=== PATIENT | female | born 1990 | race African-American/Black ===

== ENCOUNTER → 2019-04-28 14:00 | Outpatient (CLI) | payer MEDICAID | END | disposition home or self-care (01) | LOC: D.CT 14:00 | PROVIDERS: ATTEND Family Medicine | DX: R10.9 Unspecified abdominal pain (principal) ==

== ENCOUNTER 2019-06-09 10:53 | Emergency (ER) | payer MEDICAID ==
[~2019-06-09] VITALS: Ht 162.6 cm; Wt 77.3 kg
[2019-06-09 11:13] VITALS: Ht 162.6 cm; Wt 77.3 kg
[2019-06-09] MEDS ORDERED: BIRTH CONTROL PILL (11:14)
[2019-06-09 11:30] LABS: BASOPHILS 0.3 % (0-2); EOSINOPHILS 0.8 % (0-7); HEMATOCRIT 36.3 % (36.0-48.0); HEMOGLOBIN 12.1 g/dL (12-16); IMMATURE GRANULOCYTES 0.2 % (0-5); LYMPHOCYTES 24.6 % (15-50); MCH 30.1 pg (26.0-34.0); MCHC 33.3 g/dL (31.0-37.0); MCV 90.3 fL (80.0-100.0); MEAN PLATELET VOLUME 9.4 fL (7.4-10.4); MONOCYTES 4.6 % (2-11); NEUTROPHILS 69.5 % (40-80); PLATELET COUNT 276 10x3/uL (130-400); RBC 4.02 10x6/uL (4.00-5.40); RDW 12.4 % (11.5-14.5); WBC 11.2 10x3/uL (4.8-10.8)
[2019-06-09 11:35] LABS: CALC OSMOLALITY 271 mosm/kg (275-300); CALCIUM 9.3 mg/dL (8.5-10.1); CARBON DIOXIDE 23.9 mmol/L (21.0-32.0); CHLORIDE - SERUM 102 mmol/L (98-107); CREATININE - SERUM 0.7 mg/dL (0.6-1.3); GLUCOSE 94 mg/dL (74-106); POTASSIUM - SERUM 4.4 mmol/L (3.5-5.1); SODIUM 136 mmol/L (136-145); UREA NITROGEN 12 mg/dL (7-18); eGFR NON AFRICAN AMERICAN > 90 mL/min (90-120)
[2019-06-09 12:01] LABS: ALBUMIN 3.8 g/dL (3.4-5.0); ALKALINE PHOSPHATASE 43 U/L (46-116); ALT (SGPT) 25 U/L (10-68); BILIRUBIN - TOTAL 0.61 mg/dL (0.2-1.3); HCG - QUANTITATIVE (MATERNAL) 16034 mIU/mL; PROTEIN - SERUM 7.4 g/dL (6.4-8.2)
[2019-06-09 12:48] LABS: APPEARANCE CLEAR (CLEAR); BILIRUBIN NEGATIVE (NEGATIVE); COLOR YELLOW (YELLOW); GLUCOSE NEGATIVE (NEGATIVE); KETONE NEGATIVE (NEGATIVE); NITRITE NEGATIVE (NEGATIVE); PROTEIN NEGATIVE (NEGATIVE); RED CELLS - URINE 0-5 /hpf (0-5); UROBILINOGEN NORMAL (NORMAL); WHITE CELLS - URINE RARE /hpf (NEGATIVE)
[2019-06-09 12:49] LABS: BACTERIA FEW /hpf (NEGATIVE); EPITHELIAL CELLS 0-5 /hpf (0-5); MUCUS <1+ /lpf (NONE SEEN)
[2019-06-09 14:22] VITALS: BP 143/93
== END 2019-06-09 14:17 | disposition home or self-care (01) ==
LOC: D.ER 10:53
PROVIDERS: Family Medicine
DX: O20.9 Hemorrhage in early pregnancy, unspecified (principal); Z3A.00 Weeks of gestation of pregnancy not specified

== ENCOUNTER 2019-12-14 10:35 | Outpatient (CLI) | payer MEDICAID ==
[2019-06-09 11:13] VITALS: BMI 29.2
[~2019-12-14 10:35] MED LIST: BIRTH CONTROL PILL
== END 2019-12-14 12:10 | disposition home or self-care (01) ==
LOC: D.LDO 10:35
PROVIDERS: ATTEND Student in an Organized Health Care Education/Training Program
DX: O24.419 Gestational diabetes mellitus in pregnancy, unspecified control (principal); Z3A.00 Weeks of gestation of pregnancy not specified

== ENCOUNTER 2019-12-20 19:21 | Outpatient (CLI) | payer MEDICAID ==
[2019-06-09 11:13] VITALS: BMI 29.2
[2019-12-20 20:10] LABS: BILIRUBIN NEGATIVE (NEGATIVE); GLUCOSE NEGATIVE (NEGATIVE); KETONE NEGATIVE (NEGATIVE); NITRITE NEGATIVE (NEGATIVE); SPECIFIC GRAVITY 1.015 (1.005-1.020); UROBILINOGEN NORMAL (NORMAL)
[2019-12-20 20:11] LABS: BACTERIA FEW /hpf (NEGATIVE); EPITHELIAL CELLS OCC /hpf (0-5); RED CELLS - URINE 0-5 /hpf (0-5); WHITE CELLS - URINE OCC /hpf (NEGATIVE)
== END 2019-12-20 21:43 | disposition home or self-care (01) ==
LOC: D.LDO 19:21
PROVIDERS: ATTEND Obstetrics & Gynecology
DX: O36.8130 Decreased fetal movements, third trimester, not applicable or unspecified (principal); Z3A.33 33 weeks gestation of pregnancy

== ENCOUNTER 2019-12-23 11:27 | Outpatient (CLI) | payer MEDICAID ==
[2019-06-09 11:13] VITALS: BMI 29.2
[2019-12-23 12:52] LABS: BACTERIA MODERATE /hpf (NEGATIVE); BILIRUBIN NEGATIVE (NEGATIVE); EPITHELIAL CELLS OCC /hpf (0-5); GLUCOSE NEGATIVE (NEGATIVE); KETONE MODERATE mg/dL (NEGATIVE); NITRITE NEGATIVE (NEGATIVE); RED CELLS - URINE 0-5 /hpf (0-5); SPECIFIC GRAVITY 1.005 (1.005-1.020); UROBILINOGEN NORMAL (NORMAL); WHITE CELLS - URINE 0-5 /hpf (NEGATIVE)
== END 2019-12-24 10:09 | disposition home or self-care (01) ==
LOC: D.LDO 11:27 → D.LD 20:49 → D.LDO 12-24 10:09
PROVIDERS: ATTEND Student in an Organized Health Care Education/Training Program
DX: O24.419 Gestational diabetes mellitus in pregnancy, unspecified control (principal); Z3A.33 33 weeks gestation of pregnancy

== ENCOUNTER 2019-12-28 09:45 | Outpatient (CLI) | payer MEDICAID ==
[2019-06-09 11:13] VITALS: BMI 29.2
== END 2019-12-28 10:50 | disposition home or self-care (01) ==
LOC: D.LDO 09:45
PROVIDERS: ATTEND Student in an Organized Health Care Education/Training Program
DX: O24.419 Gestational diabetes mellitus in pregnancy, unspecified control (principal); Z3A.34 34 weeks gestation of pregnancy

== ENCOUNTER 2019-12-31 09:28 | Outpatient (CLI) | payer MEDICAID ==
[2019-06-09 11:13] VITALS: BMI 29.2
== END 2019-12-31 09:48 | disposition home or self-care (01) ==
LOC: D.LDO 09:28
PROVIDERS: ATTEND Student in an Organized Health Care Education/Training Program
DX: O24.419 Gestational diabetes mellitus in pregnancy, unspecified control (principal); Z3A.34 34 weeks gestation of pregnancy

== ENCOUNTER 2020-01-04 10:06 | Outpatient (CLI) | payer MEDICAID ==
[2019-06-09 11:13] VITALS: BMI 29.2
== END 2020-01-04 11:15 | disposition home or self-care (01) ==
LOC: D.LDO 10:06
PROVIDERS: ATTEND Student in an Organized Health Care Education/Training Program
DX: O24.419 Gestational diabetes mellitus in pregnancy, unspecified control (principal); Z3A.35 35 weeks gestation of pregnancy

== ENCOUNTER 2020-01-07 10:07 | Outpatient (CLI) | payer MEDICAID ==
[2019-06-09 11:13] VITALS: BMI 29.2
== END 2020-01-07 10:18 | disposition home or self-care (01) ==
LOC: D.LDO 10:07
PROVIDERS: ATTEND Student in an Organized Health Care Education/Training Program
DX: O24.419 Gestational diabetes mellitus in pregnancy, unspecified control (principal); Z3A.35 35 weeks gestation of pregnancy

== ENCOUNTER 2020-01-10 10:39 | Outpatient (CLI) | payer MEDICAID ==
[2019-06-09 11:13] VITALS: BMI 29.2
== END 2020-01-10 11:02 | disposition home or self-care (01) ==
LOC: D.LDO 10:39
PROVIDERS: ATTEND Student in an Organized Health Care Education/Training Program
DX: O24.419 Gestational diabetes mellitus in pregnancy, unspecified control (principal); Z3A.36 36 weeks gestation of pregnancy

== ENCOUNTER 2020-01-17 11:03 | Outpatient (CLI) | payer MEDICAID ==
[2019-06-09 11:13] VITALS: BMI 29.2
== END 2020-01-17 11:39 | disposition home or self-care (01) ==
LOC: D.LDO 11:03
PROVIDERS: ATTEND Student in an Organized Health Care Education/Training Program
DX: O24.419 Gestational diabetes mellitus in pregnancy, unspecified control (principal); Z3A.37 37 weeks gestation of pregnancy

== ENCOUNTER 2020-01-20 10:29 | Outpatient (CLI) | payer MEDICAID ==
[2019-06-09 11:13] VITALS: BMI 29.2
== END 2020-01-20 10:40 | disposition home or self-care (01) ==
LOC: D.LDO 10:29
PROVIDERS: ATTEND Student in an Organized Health Care Education/Training Program
DX: O24.419 Gestational diabetes mellitus in pregnancy, unspecified control (principal); Z3A.37 37 weeks gestation of pregnancy

== ENCOUNTER 2020-01-24 10:35 | Outpatient (CLI) | payer MEDICAID ==
[2019-06-09 11:13] VITALS: BMI 29.2
== END 2020-01-24 11:00 | disposition home or self-care (01) ==
LOC: D.LDO 10:35
PROVIDERS: ATTEND Student in an Organized Health Care Education/Training Program
DX: O24.419 Gestational diabetes mellitus in pregnancy, unspecified control (principal); Z3A.38 38 weeks gestation of pregnancy

== ENCOUNTER 2020-01-28 10:28 | Outpatient (CLI) | payer MEDICAID ==
[2019-06-09 11:13] VITALS: BMI 29.2
[2020-01-30 05:50] VITALS: BMI 34.9
== END 2020-01-28 10:50 | disposition home or self-care (01) ==
LOC: D.LDO 10:28
PROVIDERS: ATTEND Student in an Organized Health Care Education/Training Program
DX: O24.419 Gestational diabetes mellitus in pregnancy, unspecified control (principal); Z3A.38 38 weeks gestation of pregnancy

== ENCOUNTER 2020-01-30 05:26 | Inpatient (IN) | payer MEDICAID ==
[~2020-01-30] VITALS: Ht 162.6 cm; Wt 92.1 kg
[2020-01-30 05:50] VITALS: BP 132/84; Ht 162.6 cm; Wt 92.1 kg
[2020-01-30 07:25] LABS: HEMATOCRIT 28.3 % (36.0-48.0); HEMOGLOBIN 9.1 g/dL (12-16); MCH 28.1 pg (26.0-34.0); MCHC 32.2 g/dL (31.0-37.0); MCV 87.3 fL (80.0-100.0); MEAN PLATELET VOLUME 9.6 fL (7.4-10.4); RBC 3.24 10x6/uL (4.00-5.40); RDW 13.4 % (11.5-14.5); WBC 10.1 10x3/uL (4.8-10.8)
--- NOTE | 2020-01-30 20:52 | NUR ---
DR RICHARD CALLED TO GIVE REPORT THAT WHEN THIS RN CAME ON SHIFT THIS PM, PT HAD NOT RECEIVED ANY PAIN MEDICATION SINCE DELIVERY. PT REPORTED ABD CRAMPING, HIP AND LOWER BACK PAIN. PT APPEARED TO BE IN TRUE DISCOMFORT. MOTRIN 600MG PO GIVEN. WARM BLANKETS PROVIDED FOR ABD AND LOWER BACK. AFTER 1 HR, PT IS STILL C/O PAIN AND MOTILITY IS DECREASED. PT HAD DIFFICULTLY REPOSITIONING AND AMBULATING. MD GIVES ORDER MAY ADMIN PERCOCET 5/325MG 1 ONE Q 4 HRS PRN.
[2020-01-30 21:05] VITALS: BP 144/85
--- NOTE | 2020-01-30 21:05 | NUR ---
THIS RN TO BEDSIDE FOR SHIFT ASSESSMENT AND PAIN MEDICATION ADMIN. PT LYING AWAKE IN BED ON THE PHONE. PT COMPLETES PHONE CALL FOR ASSESSMENT. SEE FLOWSHEET. PT MEDCIATED W/PEROCET W/TEACHING PROVIDED. GRAPE JUICE SERVED. PT DENIES FURTHER NEEDS.
--- NOTE | 2020-01-30 22:30 | NUR ---
ROUNDS MADE. PT LYING AWAKE IN BED. PAIN REASSESSED. PT STILL REPORTS PAIN IN HER LOWER BACK THAT RADIATES UP TO HER SHOULDERS. PT INFORMED ORDER FOR HEATING PAD WILL BE OBTAINE. PT DECLINES OFFERS TO BRING HER ANYTHING TO EAT OR DRINK.
--- NOTE | 2020-01-30 23:00 | NUR ---
Flavio VILLASENOR EIGHT ARM OPERATOR ON UNIT ROUNDING. REPORT GIVEN THAT PT IS C/O PAIN AT EPIDURAL SITE THAT RADIATES UP HER BACK. ORDER REC'D PT MAY HAVE A KPAD. KPAD PROVIDED TO PT. TEACHING PROVIDED. PT DENIES NEEDS. PT INSTRUCTED TO ATTEMPT TO EMPTY HER BLADDER EVERY 2-3 HOURS. PT VERBALIZES UNDERSTANDING AND AGREEABLE. DENIES NEEDS. BED LOW, SIDE RAILS UP X 2. CALL LIGHT AND PHONE AT PT'S SIDE.
--- NOTE | 2020-01-31 | NUR ---
ROUNDS MADE FOR PAIN AND NEED ASSESSMENT. PT REPORTS KPAD IS NOT HELPING WITH BACK PAIN. REQUEST IT BE TURNED OFF. KPAD OFF AT THIS TIME. PT DENIES NEEDS. DECLINES OFFERS TO BRING HER ANYTHING.
--- NOTE | 2020-01-31 00:15 | NUR ---
VITAL SIGNS OBTAINED. PT REPORTS SHE HAS GOTTEN UP TO VOID FOR THE 3RD TIME. DENIES DIFFICULTY. WHILE AT BEDSIDE, PT QUESTIONED AGAIN IF SHE'D LIKE SOMETHING TO EAT. PT ACCEPTS SANDWHICH TRAY AND ICE WATER. BOTH SERVED.
[2020-01-31 00:30] VITALS: BP 117/83
--- NOTE | 2020-01-31 01:15 | NUR ---
PT HAS FINISHED EATING SANDWICH TRAY SERVED. REQUEST PAIN MEDICATION AT THIS TIME. MOTRIN 600MG PO AND PERCOCET 5/325MG 1 TAB GIVEN. ICE PACK OFFERED FOR PT'S CONTINUED C/O BACK PAIN. PT ACCEPTS. ICE PACK APPLIED TO BACK W/PILLOW TO BACK AND ABD FOR SUPPORT. PT REPORTS SHE PLANS TO REST NOW. CURRENTLY RATES PAIN 5/10. BED IN LOW POSITION. SIDE RAILS UP X 2. CALL LIGHT AND PHONES AT PT'S SIDE. LIGHTS DOWN.
--- NOTE | 2020-01-31 02:00 | NUR ---
ROUNDS MADE. PT RESTING QUIETLY TO LEFT TILT. EYES CLOSED. RESP EVEN AND UNLABORED. NO APPARENT DISTRESS NOTED. PT LEFT UNDISTURBED AT THIS TIME TO ALLOW FOR REST.
--- NOTE | 2020-01-31 04:30 | NUR ---
THIS RN TO ROOM W/1 TAB PERCOCET 5 TO ADMIN PER PT REQUEST FOR PAIN MEDICATION. PT TEACHING DONE IN REGARDS TO EARLY ADMIN. PT CURRENTLY RETURNING FROM BR. PINK PAD CHANGED. PT REPORTS HER PAIN HAS REMAINED THE SAME INSPITE OF ICE AND HEAT TO BACK. FRESH ICE WATER SERVED. PT ASSSISTED W/GETTING COMFORTABLE IN BED. DENIES FURTHER NEEDS.
--- NOTE | 2020-01-31 06:25 | NUR ---
LAB CALLED PER THIS RN TO REQUEST GLUCOSE BE RAN FROM [facility]. SPOKE WITH CARL. LAB WILL RUN GLUCOSE.
--- NOTE | 2020-01-31 06:26 | NUR ---
ROUNDS MADE. PT RESTING TO LEFT SIDE W/EYES CLOSED. RESP EVEN AND UNLABORED. PT LEFT UNDISTURBED AT THIS TIME.
[2020-01-31 06:59] LABS: HEMATOCRIT 30.2 % (36.0-48.0); HEMOGLOBIN 9.8 g/dL (12-16); LYMPHOCYTES 17.4 % (15-50); MCH 28.2 pg (26.0-34.0); MCHC 32.5 g/dL (31.0-37.0); MCV 86.8 fL (80.0-100.0); MEAN PLATELET VOLUME 9.2 fL (7.4-10.4); NEUTROPHILS 74.8 % (40-80); PLATELET COUNT 274 10x3/uL (130-400); RBC 3.48 10x6/uL (4.00-5.40); RDW 13.7 % (11.5-14.5)
[2020-01-31 07:06] LABS: WBC 14.8 10x3/uL (4.8-10.8)
[2020-01-31 07:57] VITALS: BP 131/79
--- NOTE | 2020-01-31 07:57 | NUR ---
SHIFT ASSESSMENT COMPLETED PER FLOWSHEET. VSS. FUNDUS FIRM, MIDLINE AND U2 WITH SMALL AMT RUBRA LOCHIA, NO CLOTS NOTED. C/O CONSTANT BACK PAIN AND ABD PAIN AND ABD CRAMPING. REPORTS THAT BACK PAIN IS SHARP ACHE THAT STARTS MID BACK AND RADIATES TO ABD AND HIP. GRIMACE NOTED WITH MOVEMENT, REPORTS THAT AMBULATING AND MOVEMENT IN BED IS UNCOMFORTABLE. WILL NOTIFY ANESTHSIA FOR EVAL. MOTRIN AND PERCOCET GIVEN PER ORDER. REPORTS THAT SHE IS PASSING FLATUS AND VOIDING WITHOUT DIFFICULTY. VERBALIZES PERICARE CARE TO RN AND DENIES QUESTIONS. PT EDUCATED ON S/S TO REPORT TO RN, VERBALIZES UNDERSTANDING. BED IN LOW POSITION WITH SRUP X2. CALL LIGHT AND PHONE WITHIN REACH. PLACED IN PT'S ARMS FOR FEEDING.
--- NOTE | 2020-01-31 08:49 | NUR ---
PAIN REASSESSMENT COMPLETED, REPORTS "A LITTLE IMPROVEMENT IN PAIN" 11/18. APPLE JUICE PROVIDED PER REQUEST. DENIES ADDITIONAL NEEDS. WILL CONTINUE TO MONITOR. BED IN LOW POSITION WITH SRUP X2. CALL LIGHT AND PHONE WITHIN REACH.
--- NOTE | 2020-01-31 09:06 | NUR ---
DR. JOSE ON UNIT, NOTIFIED OF PT C/O PAIN TO BACK THAT RADIATES TO OTHER REGIONS OF BACK AND HIPS, STATES THAT ANESTHESIA WILL EVAL.
--- NOTE | 2020-01-31 09:31 | NUR ---
DR. RICHARD AT BEDSIDE, DISCUSSING POC WITH PT. PT DENIES NEEDS. ORDERS REC'D.
--- NOTE | 2020-01-31 09:51 | NUR ---
FLEXERIL GIVEN PER ORDER. PT EDUCATED ON MED, VERBALIZES UNDERSTANDING. INSTRUCTED TO NOTIFY RN IF PAIN IS UNRELIEVED FOR DOSE TO BE REPEATED IN 1 HOUR PRN, VERBALIZES UNDERSTANDING. JUICE PROVIDED. INFANT IN NBN. PT FILLING OUT NBN PAPERWORK. BED IN LOW POSITION WITH SRUP X2. CALL LIGHT AND PHONE WITHIN REACH. WILL CONTINUE TO MONITOR.
--- NOTE | 2020-01-31 10:43 | NUR ---
RN TO BEDSIDE, PT LAYING ON L SIDE, RESTING WITH EYES CLOSED, RESP REGULAR AND UNLABORED, NO S/S OF DISTRESS NOTED. PT NOT DISTURBED TO ALLOW FOR REST. BED IN LOW POSITION WITH SRUP X2. CALL LIGHT AND PHONE WITHIN REACH. WILL CONTINUE TO MONITOR.
--- NOTE | 2020-01-31 11:16 | NUR ---
DR. JOSE ON UNIT TO SEE PT. DR. JOSE TO ROOM.
--- NOTE | 2020-01-31 11:47 | NUR ---
RN TO BEDSIDE FOR ROUNDS PT RESTING WITH EYES CLOSED, RESP REGULAR AND UNLABOREED, NO S/S OF DISTRESS NOTED. INFANT REMAINS IN NBN. PT NOT DISTURBED TO ALLOW FOR REST. BED IN LOW POSITION WITH SRUP X2. CALL LIGHT AND PHONE WITHIN REACH, WILL CONTINUE TO MONITOR.
--- NOTE | 2020-01-31 14:39 | NUR ---
ROUNDS MADE. PT REMAINS ON L SIDE RESTING WITH EYES CLOSED. OCCASIONAL SNORING NOTED. RESP REGULAR AND UNLABORED, NO S/S OF DISTRESS NOTED. BED IN LOW POSITION WITH SRUP X2. CALL LIGHT AND PHONE WITHIN REACH. WILL CONTINUE TO MONITOR.
--- NOTE | 2020-01-31 15:23 | NUR ---
RESTING WITH EYES CLOSED IN SEMI-FOWLERS POSITION. RESP REGULAR AND UNLABORED, NO S/S OF DISTRESS NOTED. PT NOT DISTURBED TO ALLOW FOR REST. BED IN LOW POSITION WITH SRUP X2. CALL LIGHT AND PHONE WITHIN REACH. WILL CONTINUE TO MONITOR.
--- NOTE | 2020-01-31 17:35 | NUR ---
PT AROUSED TO VOICE AND TOUCH. VSS. FUNDUS REMAINS FIRM MIDLINE AND U2 WITH SMALL AMT RUBRA LOCHIA. C/O BACK, HIP, AND ABD DISCOMFORT 5-6/10. PERCOCET AND MOTRIN GIVEN PER ORDER AND PT REQUEST. PT REQUEST DIFFERENT MEAL TRAY, CAFETERIA NOTIFIED AND DIET MESSAGE PLACED. SODA PROVIDED. DENIES ADDITIONAL NEEDS. POC DISCUSSED AND PT REQUESTS TO REMAIN IN PATIENT D/T CONTINUED PAIN AND INFANT NOT D/C'ING. BED IN LOW POSITION WITH SRUP X2. CALL LIGHT AND PHONE WITHIN REACH. WILL CONTINUE TO MONITOR.
--- NOTE | 2020-01-31 18:28 | NUR ---
PAIN REASSESSMENT COMPLETED. PT RESTING IN SEMI-FOWLERS POSITION WITH EYES CLOSED. RESP REGULAR AND UNLABORED, NO S/S OF DISTRESS NOTED. BED IN LOW POSITION WITH SRUP X2. CALL LIGHT AND PHONE WITHIN REACH.
--- NOTE | 2020-01-31 19:00 | NUR ---
BEDSIDE REPORT GIVEN BY QUINTON DOBBS.
[2020-01-31 20:00] VITALS: BP 128/80
--- NOTE | 2020-01-31 20:10 | NUR ---
ASSESSMENT COMPLETED. PT IS SITTING UP IN BED HOLDING THE BABY. SHE STILL HAS A LITTLE PAIN IN HER BACK AND PELVIS AREA. SHE REALLY WANTS TO SHOWER. PT SL IS IN PLACE IN THE LEFT WRIST. IT IS PATENT. SITE LOOKS GOOD WITH NO REDNESS OR SWELLING. HEART SOUNDS WNL, LUNGS CLEAR, BOWEL SOUNDS HEARD. FUNDUS IS FIRM. PT KNOWS THAT IF SHE FEELS LIKE SHE CANNOT TAKE CARE OF HER BABY TONIGHT THAT SHE CAN GO TO THE NURSERY TO STAY.
--- NOTE | 2020-01-31 21:00 | NUR ---
PT IS RESTING QUIETLY.
--- NOTE | 2020-01-31 23:30 | NUR ---
PT IS ASKING IF SHE CAN HAVE IV MEDS FOR HER PAIN. I EXPLAINED THAT SHE DID NOT HAVE THAT ORDERED. SHE SAID OK AND IS TRYING TO SLEEP.
--- NOTE | 2020-02-01 02:05 | NUR ---
MAKING ROUNDS. PT IS AWAKE AT THIS TIME BUT VERY SLEEPY. BABY IS IN THE CRIB NEXT TO THE BED. PT ASKED IF IT WAS TIME FOR PAIN MEDS. I TOLD HER IS WOULD BE ANOTHER HOUR. SHE ASKED AGAIN IF SHE COULD HAVE MEDS THROUGH HER IV. I EXPLAINED AGAIN THAT SHE DID NOT HAVE AND ORDER FOR THIS.
[2020-02-01 06:10] LABS: RAPID PLASMA REAGIN Non Reactive (Non Reactive)
--- NOTE | 2020-02-01 06:10 | NUR ---
PT IS SITTING UP IN BED FEEDING HER BABY. SHE IS HOLDING HER LOVINGLY. SHE HAS NOT C/O PAIN. SHE HAS BEEN SLEEPING WITHOUT IT. NO NEW C/O OR NEEDS AT THIS TIME.
[2020-02-01 08:11] VITALS: BP 144/88
--- NOTE | 2020-02-01 08:11 | NUR ---
SHIFT ASSESSMENT COMPLETED PER FLOWSHEET, BP ELEVATED 144/88 C/O BACK AND PELVIC PAIN 01/18 PER EMAR MEDICATED WITH MOTRIN AND PERCOCET WILL RECHECK. FUNDUS FIRM MIDLINE AT U/U. LOCHIA RUBRA SMALL WITHOUT CLOTS. EDVIN CARE PER PT. UP VOIDING INDEPENDENTLY WITHOUT DIFFICULTY. BOTTLE FEEDING AT THIS TIME. ICE AND SODA PROVIDED.
--- NOTE | 2020-02-01 09:10 | NUR ---
PAIN REASSESSMENT COMPLETED, DENIES RELIEF OF PAIN AND REPORTS THAT PAIN REMAINS 6/10. DISCUSSED NURSING INTERVENTIONS FOR PAIN SUCH USE OF ORDERED K-PAD OR ICE PACK, REFUSES STATES THAT SHE TRIED THEM PREVIOUSLY WITH NO RELIEF OF PAIN. ENCOURAGED TO SHOWER OR GET OOB TO AMB, STATES THAT SHE DID GET "A LITTLE BIT" OF RELIEF WITH SHOWER LAST PM AND THAT SHE MAY SHOWER SHORTLY, INSTRUCTED TO NOTIFY RN PRIOR TO SHOWERING, VERBALIZES UNDERSTANDNIG, DENIES NEEDS. BED IN LOW POSIITON WITH SRUP X2. CALL LIGHT AND PHONE WITHIN REACH. WILL CONTINUE TO MONITOR.
--- NOTE | 2020-02-01 10:00 | NUR ---
BP RECHECK 157/90 PT DENIES ANY PAIN RELIEF WITH PREVIOUS PO MEDS AND REQUESTS IV PAIN MEDS WILL NOTIFY
[2020-02-01 10:04] VITALS: BP 157/90
--- NOTE | 2020-02-01 10:18 | NUR ---
ATTEMPTED TO CONTACT DR. RICHARD REGARDING PT CONTINUED C/O PAIN TO BACK AND PELVIC REGION REMAINING 6/10 FOLLOWING INTERVENTIONS AND PT ELEVATED B/P. NO ANSWER AT THIS TIME, ATTEMPT CALL BACK IN 5 MINUTES.
--- NOTE | 2020-02-01 10:22 | NUR ---
DR. RICHARD CALLED BACK TO UNIT. DISCUSSED PT C/O CONTINUED UNCONTROLLED PAIN AND ELEVATED B/P. ORDERS REC'D.
--- NOTE | 2020-02-01 10:45 | NUR ---
D/W PT NEW ORDERS FOR NOW DOSE OF PERCOCET AND PHYSICAL THERAPY FOR PAIN CONTROL. OFFERRED K-PAD OR ICE TO BACK AND OR ABD. PT REFUSED STATING SHE TRIED HEAT/ICE WITHOUT RELIEF YESTERDAY.
--- NOTE | 2020-02-01 12:07 | NUR ---
DR. RICHARD AT BEDSIDE, DISCUSSING POC WITH PT.
--- NOTE | 2020-02-01 12:55 | NUR ---
PT CONSULT CALLED TO ROBEL IN PT. STATES THAT PT WILL COME EVAL PT.
--- NOTE | 2020-02-01 13:00 | NUR ---
JOY, FROM PT CALLS UNIT. DISCUSSED PT COMPLAINTS PAIN AND MD PLAN FOR D/C. PER JOY SHE WILL COME TO UNIT TO VIVI PT..
--- NOTE | 2020-02-01 13:31 | NUR ---
PAIN REASSESSMENT COMPLETED. BONDING WITH INFANT IN ARMS. DENIES NEEDS. STATES THAT PAIN IS 4-5/10.
--- NOTE | 2020-02-01 15:36 | NUR ---
[employer] COMPANY ON UNIT AND TO ROOM WITH LAWRENCE FOR PT.
--- NOTE | 2020-02-01 16:25 | NUR ---
VSS. FUNDUS FIRM, MIDLINE AND U2 WITH SCANT RUBRA LOCHIA, NO CLOTS NOTED. C/O DISCOMFORT 5-01/18, SEE EMAR. MOTRIN AND PERCOCET GIVEN. PT REPORTS THAT WALKER HAS DECREASED PAIN WITH AMBULATION. ICE WATER PROVIDED, DENIES ADDITIONAL NEEDS. BED IN LOW POSITION WITH SRUP X2. CALL LIGHT AND PHONE WITHIN REACH. WILL CONTINUE TO MONITOR.
--- NOTE | 2020-02-01 16:50 | NUR ---
DR. RICHARD CONTACTED REGARDING PAIN MEDS PRESCRIPTION AND D/C ORDER. ORDERS REC'D.
--- NOTE | 2020-02-01 17:10 | NUR ---
PAIN REASSESSMENT COMPLETED, REPORTS "A LITTLE BETTER." 11/18. DENIES NEEDS. PT REQUESTING TO D/C COREEN, DISCUSSED WITH PT NEED FOR MD TO COME TO UNIT TO PROVIDE PERCOCET PRESCRIPTION, VERBALIZES UNDERSTANDING.
--- NOTE | 2020-02-01 18:17 | NUR ---
IV DC'D WITH [facility] INTACT. PRESCRIPTIONS HANDED TO PT. DISCHARGE INSTRUCTIONS GIVEN AND REVIEWED WITH PT. AWAITING RIDE HOME. VOICED UNDERSTANDING TO CALL FOR WC WHEN READY
--- NOTE | 2020-02-01 18:25 | NUR ---
PT INSTRUCTED SHE MAY NOT DRIVE HERSELF HOME DUE TO MEDICATIONS TAKEN TODAY. PT VOICED UNDERSTANDING AND STATES WILL CALL FRIEND TO PICK HER UP.
--- NOTE | 2020-02-01 18:52 | MORECARE ---
CASE MANAGEMENT DISCHARGE SUMMARY PATIENT: EVA SON UNIT: [id number] ADM DATE: 01/30/20 AGE: 29 : 86 SEX: F ROOM/BED: D.1257 AUTHOR: SUNG CAI PHYSICIAN: REFERRING PHYSICIAN: AVELINO RICHARD DO DATE OF SERVICE: 02/01/20 Discharge Plan Patient Name: EVA SON Facility: [facility]:[place] : 1990 Planned Disposition: Anticipated Discharge Date: Discharge Date: Expected LOS: Initial Reviewer: [email or web address] Initial Review Date: 01/30/2020 Generated: 02/01/20 7:51 pm Comments DCP- Discharge Planning Updated by [email or web address]: Ne Men[place] on 02/01/20 5:[address] CM was notified for walker. CM contacted [facility] and faxed records. Angela stated they would deliver to patient's room prior to discharge. External Providers External Provider: [facility] Next Contact Date: Service Request Date: Service Type: Resolution: Reviewer: Comments: Patient Name: EVA SON Page [phone] at 1852 All edits/amendments must be made on the electronic document DICTATION DATE: 02/01/201851 SALESPERSON WOMEN'S DRESSES: CARLA 02/01/201851 RPT#: [id number] DC DATE: STATUS: ADM IN [place] [address] [place] [address] END OF REPORT
== END 2020-02-01 19:00 | disposition home or self-care (01) | DRG 806 ==
LOC: D.LD 05:26
PROVIDERS: ADMIT Student in an Organized Health Care Education/Training Program; ATTEND Student in an Organized Health Care Education/Training Program
PROC: 3E033VJ Introduction of Other Hormone into Peripheral Vein, Percutaneous Approach (ICD-10-PCS; principal; 2020-01-30)
PROC: 10E0XZZ Delivery of Products of Conception, External Approach (ICD-10-PCS; 2020-01-30)
DX: O24.420 Gestational diabetes mellitus in childbirth, diet controlled (principal); O10.92 Unspecified pre-existing hypertension complicating childbirth; Z37.0 Single live birth; Z3A.39 39 weeks gestation of pregnancy; O71.89 Other specified obstetric trauma